=== PATIENT | female | born 1980 | race African-American/Black ===

== ENCOUNTER 2021-03-19 09:24 | Outpatient (CLI) | payer OTHER ==
[2021-03-19 09:49] LABS: PLATELET COUNT 543 K/uL (152-353)
== END 2021-03-19 19:02 | disposition home or self-care (01) ==
LOC: LABW 09:24
PROVIDERS: ATTEND Family Medicine
DX: R60.0 Localized edema (principal); Z13.220 Encounter for screening for lipoid disorders; R53.82 Chronic fatigue, unspecified
CPT/HCPCS: 36415; 80053; 80061; 81000; 82306; 82607; 83880; 84443; 85027